=== PATIENT | female | born 1970 | race Caucasian/White ===

== ENCOUNTER 2023-07-30 13:39 | Outpatient (CLI) | payer OTHER, BC, SELFPAY | END 2023-07-30 13:40 | disposition home or self-care (01) | LOC: LKVREF 13:40 | PROVIDERS: PCP Family Medicine; Visit Provider Obstetrics & Gynecology | DX: R30.0 Dysuria (principal) | CPT/HCPCS: 87086 ==

== ENCOUNTER 2023-08-19 09:05 | Outpatient (CLI) | payer OTHER, BC, SELFPAY ==
--- NOTE | 2023-08-19 09:15 | US_ITS ---
Patient: LIBBY PARDO Facility:?[facility] Patient ID:?[id number] Site Patient ID:?[id number]. Site :?1970 Study:?US-Pelvis TA/TV-08/19/2023 10:39:35 AM Ordering Physician:SHARRON Final Report: INDICATION: prolapse, IUD with spotting, vulvar mass COMPARISON: none TECHNIQUE: 2D adam scale and color Doppler images were acquired of the pelvis using a transabdominal and transvaginal approach. FINDINGS: Uterus measures 11.0 cm in length by 5.7 cm in AP diameter by 4.6 cm in transverse dimension. The myometrium has a heterogeneous echotexture. Cervical nabothian cysts. Circumscribed hypoechoic solid nodular structure adjacent to the left posterior aspect of the cervix measuring 2.3 x 2.2 x 2.3 cm. IUD is present in good position within the endometrial canal. The right ovary measures 2.8 x 2.0 x 1.0 cm in size and the left ovary measures 3.1 x 1.6 x 2.2 cm. The ovaries demonstrate normal arterial and venous blood flow on color Doppler analysis. There are no suspicious fluid collections within the cul-de-sac. IMPRESSION: Solid circumscribed nodule/mass adjacent to the left posterior cervix measuring 2.3 cm. IUD in normal position within the endometrial canal. Dictated by Adiel Martinez MD @ 08/19/2023 10:46:34 AM Signed by:?Adiel Martinez MD @08/19/2023 10:46:34 AM (Electronic Signature)
== END 2023-08-19 09:06 | disposition home or self-care (01) ==
LOC: US 09:08
PROVIDERS: PCP Family Medicine; Visit Provider Obstetrics & Gynecology
DX: N93.9 Abnormal uterine and vaginal bleeding, unspecified (principal); R19.00 Intra-abdominal and pelvic swelling, mass and lump, unspecified site
CPT/HCPCS: 76830; 76856

== ENCOUNTER 2023-08-25 08:11 | Outpatient (CLI) | payer OTHER, BC, SELFPAY ==
--- NOTE | 2023-08-25 08:15 | MR_ITS ---
Patient: LIBBY PARDO Facility:?[facility] Patient ID:?[id number] Site Patient ID:?[id number]. Site :?1970 Study:?MRI-Pelvis W/ and W/O Cont 20 CC DOATERM-08/25/2023 11:35:45 AM Ordering Physician:?ALEXI Final Report: INDICATION: Pelvic mass. COMPARISON: Pelvic ultrasound dated 19 August 2023. TECHNIQUE: Pelvic MRI with T1, T2, and postcontrast images. Intravenous gadolinium administered. FINDINGS: 2.5 x 2.3 x 2.2 cm exophytic fibroid extending off the left posterior body of the uterus. The uterus is otherwise unremarkable. Multiple nabothian cysts in the cervix. Normal thickness of the endometrial stripe. IUD in the endometrial canal. 1.5 cm dominant follicle in the left ovary. The ovaries are otherwise unremarkable. No adenopathy. No other bony or soft tissue abnormalities identified. Impression : 1. 2.5 cm exophytic fibroid extending off the left posterior body of the uterus. The uterus is otherwise unremarkable. Dictated by Jourdan Castro MD @ 08/25/2023 2:33:04 PM Signed by:?Jourdan Castro MD @08/25/2023 2:33:04 PM (Electronic Signature)
== END 2023-08-25 08:12 | disposition home or self-care (01) ==
PROVIDERS: PCP Family Medicine; Visit Provider Obstetrics & Gynecology
DX: R19.00 Intra-abdominal and pelvic swelling, mass and lump, unspecified site (principal); D25.9 Leiomyoma of uterus, unspecified
CPT/HCPCS: 72197; A9575

== ENCOUNTER 2025-01-09 07:35 | Outpatient (RCR) | payer OTHER, BC, SELFPAY | END 2025-05-09 23:59 | disposition home or self-care (01) | PROVIDERS: PCP Family Medicine; Visit Provider Nurse Practitioner | DX: M47.26 Other spondylosis with radiculopathy, lumbar region (principal); M47.816 Spondylosis without myelopathy or radiculopathy, lumbar region; M41.35 Thoracogenic scoliosis, thoracolumbar region; R53.1 Weakness; M41.9 Scoliosis, unspecified; Z51.89 Encounter for other specified aftercare | CPT/HCPCS: 97110; 97140; 97162 ==